=== PATIENT | female | born 1985 | race Hispanic/Latino ===

== ENCOUNTER 2020-05-30 10:13 | Outpatient (CLI) | payer OTHER ==
[2020-05-30 17:53] LABS: SARS-CoV-2 PCR by NAA Not Detected (NotDetected)
== END 2020-05-30 10:14 | disposition home or self-care (01) ==
LOC: CSHLAB 10:13
PROVIDERS: ATTEND Family Medicine
DX: Z20.822 Contact with and (suspected) exposure to COVID-19 (principal)
CPT/HCPCS: 87635; U0003; U0005

== ENCOUNTER 2020-06-03 19:30 | Inpatient (IN) | payer MEDICAID, OTHER, SELFPAY ==
[~2020-06-03 19:30] MED LIST: Bupivacaine 0.25% HCL 30 ML VIAL ONE
[2020-06-03 20:16] VITALS: BMI 25.4
[2020-06-03] MEDS ORDERED: Methylergonovine 0.2 MG/ML VIAL IM PRN (21:21)
[2020-06-03] MEDS ORDERED: Butorphanol Tartrate 1 MG/ML VIAL SLOW IVP PRN (21:21)
[2020-06-03] MEDS ORDERED: Lidocaine 1% (PF) 30 ML VIAL SC PRN (21:21)
[2020-06-03] MEDS ORDERED: Misoprostol 200 MCG TAB PR PRN (21:21)
[2020-06-03] MEDS ORDERED: Diphenoxylate HCl/Atropine Tablet PO PRN ×2 (21:21)
[2020-06-03] MEDS ORDERED: NS / Oxytocin 40 units/1000ml 1,000 ML IV PRN (21:21)
[2020-06-03] MEDS ORDERED: Acetaminophen 500 MG TAB PO PRN (21:21)
[2020-06-03] MEDS ORDERED: Ibuprofen 800 MG TAB PO PRN (21:21)
[2020-06-03] MEDS ORDERED: Promethazine HCl 25 MG/ML VIAL IM PRN (21:21)
[2020-06-03] MEDS ORDERED: Carboprost 250 MCG/ML AMP IM PRN (21:21)
[2020-06-03] MEDS ORDERED: Ondansetron PF 4 MG/2 ML Vial IVP PRN (21:21)
[2020-06-03] MEDS ORDERED: hydrALAZINE 20 MG/ML VIAL SLOW IVP PRN (21:21)
[2020-06-03] MEDS: Lactated Ringer's 1,000 ML IV SCH (22:39)
[2020-06-03] MEDS: Misoprostol 100 MCG TAB VAG SCH (22:40)
[2020-06-03 22:45] LABS: Hemoglobin 11.7 g/dL (12.0-15.5); Mean Corpuscular HGB CONC 33.7 g/dL (32.0-36.0); Mean Corpuscular Hemoglobin 29.8 pg (27.0-33.0); Mean Corpuscular Volume 88.5 fl (81.6-98.3); Mean Platelet Volume 11.2 fl (7.4-10.4); Platelet Count 254 10x3/uL (150-450); RBC Distribution Width 15.4 % (11.5-14.5); Red Blood Cell (RBC) Count 3.92 10x6/uL (3.90-5.03); White Blood Cell (WBC) Count 10.8 10x3/uL (3.5-10.5)
[2020-06-03 22:54] LABS: Glucose 69 mg/dL (70-105)
[2020-06-03 23:19] LABS: Syphilis Antibody Nonreactive (Nonreactive); Syphilis Antibody Index 0.03 S/CO (<1.00 Non-Reactive)
[2020-06-03 23:20] LABS: Hep B Surf Ag Non-Reactive S/CO (NonReactive)
[2020-06-03 23:22] LABS: HBSAg Index 0.14 S/CO (0-0.99)
[2020-06-04] MEDS: Lactated Ringer's 1,000 ML IV SCH ×2 (06:04→11:11)
[2020-06-04] MEDS ORDERED: NS w/ Oxytocin 30 units 500 ML ONE (08:12)
[2020-06-04] MEDS: Misoprostol 100 MCG TAB VAG SCH ×4 (08:13→22:15)
[2020-06-04] MEDS ORDERED: NS w/ Oxytocin 30 units 500 ML IVPB SCH (08:30)
[2020-06-04] MEDS: NS w/ Oxytocin 30 units 500 ML IVPB SCH ×2 (08:34→18:52)
[2020-06-04] MEDS ORDERED: Fentanyl 4 mcg/Bup 0.1% Cadd 100 ML ONE (10:43)
[2020-06-04] MEDS ORDERED: Naloxone HCl 0.4 mg/ml Vial IVP PRN ×2 (11:21)
[2020-06-04] MEDS ORDERED: ePHEDrine 50 MG/ML VIAL SLOW IVP PRN (11:21)
[2020-06-04] MEDS ORDERED: Acetaminophen 325 MG TAB PO PRN (11:21)
[2020-06-04] MEDS ORDERED: Ondansetron PF 4 MG/2 ML Vial IVP PRN ×2 (11:21→22:05)
[2020-06-04] MEDS ORDERED: Promethazine HCl 25 MG/ML VIAL IM PRN (11:21)
[2020-06-04] MEDS ORDERED: Eucerin (Mineral Oil/Petrolatum,White) 30 gm Jar TOP PRN (11:21)
[2020-06-04] MEDS ORDERED: Lactated Ringer's 500 ML IV PRN (11:21)
[2020-06-04] MEDS ORDERED: diphenhydrAMINE 50 MG/ML VIAL IVP PRN (11:21)
[2020-06-04] MEDS ORDERED: Fentanyl 4 mcg/Bupivacaine 0.1% Cassette 100 ML EPIDURAL SCH (11:30)
[2020-06-04] MEDS ORDERED: Communication Order-Pharmacy FS SCH (11:30)
[2020-06-04] MEDS ORDERED: Terbutaline Sulfate 1 MG/ML VIAL SC SCH (12:45)
[2020-06-04] MEDS ORDERED: NS w/ Oxytocin 30 units 500 ML IVPB PRN (13:06)
[2020-06-04] MEDS ORDERED: Dextrose 5%-Lactated Ringers 1,000 ML IV SCH (14:15)
[2020-06-04] MEDS ORDERED: Misoprostol 200 MCG TAB ONE (16:51)
[2020-06-04] MEDS ORDERED: Lanolin Ointment 7 GM TUBE TOP PRN (22:05)
[2020-06-04] MEDS ORDERED: Milk Of Magnesia 30 ML UDCUP PO PRN (22:05)
[2020-06-04] MEDS ORDERED: NS / Oxytocin 40 units/1000ml 1,000 ML IV SCH (22:05)
[2020-06-04] MEDS ORDERED: Misoprostol 200 MCG TAB VAG PRN (22:05)
[2020-06-04] MEDS ORDERED: Methylergonovine 0.2 MG/ML VIAL IM PRN (22:05)
[2020-06-04] MEDS ORDERED: Benzocaine-Menthol 82.5 ML CAN TOP PRN (22:05)
[2020-06-04] MEDS ORDERED: hydrALAZINE 20 MG/ML VIAL SLOW IVP PRN (22:05)
[2020-06-04] MEDS ORDERED: Bisacodyl 10 MG SUPP PR PRN (22:05)
[2020-06-04] MEDS ORDERED: diphenhydrAMINE 25 MG CAP PO PRN (22:05)
[2020-06-04] MEDS: Ibuprofen 800 MG TAB PO SCH (22:33)
[2020-06-05] MEDS: Ibuprofen 800 MG TAB PO SCH ×2 (06:01→14:25)
[2020-06-05] MEDS ORDERED: Measles/Mumps/Rubella 10 MCG/0.5 ML VIAL SC ONE (09:00)
[2020-06-05] MEDS ORDERED: Docusate Calcium (SURFAK) 240 MG CAP PO SCH (09:00)
[2020-06-05] MEDS ORDERED: Varicella virus, LIVE 0.5 ML VIAL SC ONE (09:00)
[2020-06-05] MEDS ORDERED: Adacel (T-DAP) 0.5 ML SYRINGE IM ONE (09:00)
[2020-06-05] MEDS ORDERED: Prenatal Vitamin 1 TAB PO SCH (09:00)
[2020-06-05] MEDS: Ferrous Sulfate 325 MG TAB PO SCH ×2 (09:20→18:26)
[2020-06-05 17:11] VITALS: BP 114/56; TEMP 98.2
== END 2020-06-05 20:40 | disposition home or self-care (01) | DRG 807 ==
LOC: EDSTATUS 19:30 → CSHLD 19:47 → CSHPP 06-04 21:40
PROVIDERS: ADMIT Family Medicine; ATTEND Family Medicine
PROC: 10E0XZZ Delivery of Products of Conception, External Approach (ICD-10-PCS; principal; 2020-06-04)
PROC: 4A0HXCZ Measurement of Products of Conception, Cardiac Rate, External Approach (ICD-10-PCS; 2020-06-04)
PROC: 0HQ9XZZ Repair Perineum Skin, External Approach (ICD-10-PCS; 2020-06-04)
DX: O24.420 Gestational diabetes mellitus in childbirth, diet controlled (principal); Z37.0 Single live birth; Z3A.39 39 weeks gestation of pregnancy; O76 Abnormality in fetal heart rate and rhythm complicating labor and delivery; O70.1 Second degree perineal laceration during delivery
CPT/HCPCS: 36415; 36416; 51702; 82947; 85027; 86780; 86850; 86900; 86901; 87340; J2590; S0020